=== PATIENT | female | born 1965 | race Two or more races ===

== ENCOUNTER 2016-09-20 17:49 | Emergency (ER) | payer OTHER ==
[~2016-09-20] VITALS: Ht 152.4 cm; Wt 59.0 kg
[~2016-09-20 17:49] MED LIST: CYCLOBENZAPRINE10 MG ORAL; ENALAPRIL MALEA20 MG ORAL; GUAIFENESIN-CO118 M1 ORAL; IBUPROFEN600 MG ORAL; NORCO 5-325 TA1 EAC1 ORAL; NORVASC10 MG ORAL; TAMIFLU75 MG ORAL
[2016-09-20 18:06] VITALS: BP 128/80
[2016-09-20] MEDS ORDERED: Morphine Sulfate 2mg/ml Inj IVP ONE (18:30)
[2016-09-20] MEDS ORDERED: Ketorolac 30mg Inj IV ONE (18:30)
[2016-09-20 19:20] LABS: APPEARANCE,URINE CLEAR; KETONES,URINE NEGATIVE (NEGATIVE); LEUKOCYTE ESTERASE ,URINE 1+ (NEGATIVE); NITRITE,URINE NEGATIVE (NEGATIVE); PH,URINE 6 (4.5-8.0); PROTEIN,URINE NEGATIVE (NEGATIVE); UROBILINOGEN,URINE NORMAL MG/DL (0.0-1.0)
[2016-09-20 19:20] LABS: BASOPHILS % (AUTO) 0.8 % (0.0-2.0); EOSINOPHILS % (AUTO) 1.4 % (0.0-3.0); LYMPHOCYTES % (AUTO) 38.6 % (20.0-45.0); MEAN CORPUSCULAR VOLUME 91 FL (80-99); MEAN PLATELET VOLUME 6.8 FL (6.5-10.1); NEUTROPHILS % (AUTO) 53.2 % (45.0-75.0); PLATELET COUNT 290 K/UL (150-450); RED CELL DISTRIBUTION WIDTH 11.7 % (11.6-14.8); WHITE BLOOD COUNT 7.6 K/UL (4.8-10.8)
[2016-09-20 19:33] LABS: SQUAMOUS EPITHELIAL CELL,UR FEW /LPF (NONE/OCC)
[2016-09-20 19:34] LABS: BACTERIA,URINE FEW /HPF
[2016-09-20 19:37] LABS: ALANINE AMINOTRANSFERASE 17 U/L (3-33); ALBUMIN/GLOBULIN RATIO 1.2 (1.0-2.7); ANION GAP 16 (5-15); ASPARTATE AMINO TRANSFERASE 20 U/L (5-40); CALCIUM 9.5 mg/dL (8.6-10.2); CARBON DIOXIDE 26 mEQ/L (20-30); CHLORIDE 97 mEQ/L (98-107); CREATININE 0.9 mg/dL (0.5-0.9); GLOMERULAR FILTRATION RATE > 60 mL/min (>60); HEMOLYSIS 8; LIPASE 38 U/L (< 60); POTASSIUM 3.9 mEQ/L (3.4-4.9); SODIUM 139 mEQ/L (135-145); TOTAL PROTEIN 7.8 g/dL (6.6-8.7)
[2016-09-20 22:18] VITALS: BP 114/69
[2016-09-20] MEDS ORDERED: TRAMADOL HCL50 MG ORAL (23:01)
[2016-09-20] MEDS ORDERED: IBUPROFEN600 MG ORAL (23:01)
[2016-09-20 23:30] VITALS: BP 125/69
--- NOTE | 2016-09-21 02:03 | Emergency Room Report ---
History of Present Illness General Chief Complaint: Abdominal Pain Source: Patient Present Illness HPI Patient presents with R flank and abdominal pain. Pain began today. 10/ (to RN) 8/10 to me, aching pressure, some radiation from flank to RLQ. Constant. No meds taken. Not positional. No change bowel habits. No dysuria. No fevers , chills. Has had similar many years ago, possibly related to renal stones. Post menopausal. Post partial hysterectomy for fibroids. Recent pap = abnormal. Possible renal stones. Recent L arm/shoulder strain with continued discomfort - not related to abdominal pain. Possibly related to housekeeping activities. No RUBALCAVA, rashes, URI sy, dyspnea, chest pain, leg swelling. Allergies: Coded Allergies: No Known Allergies (Unverified , 10/29/15) Patient History Past Medical History: see triage record Past Surgical History: hysterectomy - partial Social History: Denies: smoking Social History Narrative house keeper Reviewed Nursing Documentation: PMH: Agreed, PSxH: Agreed Nursing Documentation-PMH Hx Hypertension: Yes - hyperlipidemia Hx Seizures: Yes Review of Systems All Other Systems: negative except mentioned in HPI Physical Exam Vital Signs Date Time Temp Pulse Resp B/P Pulse Ox O2 Delivery O2 Flow Rate FiO2 09/20/16 18:01 98.4 80 20 128/80 100 Room Air Sp02 EP Interpretation: reviewed, normal General Appearance: well appearing, no apparent distress, GCS 15 Head: normocephalic Eyes: bilateral eye PERRL, bilateral eye normal inspection ENT: moist mucus membranes Neck: supple Respiratory: lungs clear, normal breath sounds Cardiovascular #1: regular rate, rhythm Cardiovascular #2: 2+ radial (R) Gastrointestinal: normal bowel sounds, soft, no mass, no organomegaly, non- distended, no rebound, tenderness - R anterior flank area and RLQ Genitourinary: no CVA tenderness Musculoskeletal: back normal, gait/station normal, normal range of motion Neurologic: alert, oriented x3 Psychiatric: mood/affect normal Skin: normal inspection, warm/dry Medical Decision Making Diagnostic Impression: Primary Impression: Abdominal pain Qualified Codes: R10.31 - Right lower quadrant pain ER Course Patient presents with flank/RLQ pain. DDx: appendicitis, stone, UTI, diverticulitis, fibroids, ruptured ovarian cyst amongst others. Urgent evaluation due to severity of pain with labs, UA and ultrasound (consider CT if leukocytosis). Treatment with IV hydration and analgesia. Labs with normal WBC and H/H. Lytes and urine normal. U/S no stone or obstruction. Possible uterine issue. Pain essentially resolved. Patient stable for outpatient observation and treatment. Laboratory Tests Test 09/20/16 18:03 09/20/16 19:02 Urine Color Pale yellow Urine Appearance Clear Urine pH 6 (4.5-8.0) Urine Specific [place] 1.020 (1.005-1.035) Urine Protein Negative (NEGATIVE) Urine Glucose (UA) Negative (NEGATIVE) Urine Ketones Negative (NEGATIVE) Urine Occult Blood 3+ (NEGATIVE) H Urine Nitrite Negative (NEGATIVE) Urine Bilirubin Negative (NEGATIVE) Urine Urobilinogen Normal MG/DL (0.0-1.0) Urine Leukocyte Esterase 1+ (NEGATIVE) H Urine RBC 2-4 /HPF (0 - 2) H Urine WBC 2-4 /HPF (0 - 2) Urine Squamous Epithelial Cells Few /LPF (NONE/OCC) Urine Bacteria Few /HPF (NONE) White Blood Count 7.6 K/UL (4.8-10.8) Red Blood Count 4.30 M/UL (4.20-5.40) Hemoglobin 12.9 G/DL (12.0-16.0) Hematocrit 39.2 % (37.0-47.0) Mean Corpuscular Volume 91 FL (80-99) Mean Corpuscular Hemoglobin 30.0 PG (27.0-31.0) Mean Corpuscular Hemoglobin Concent 33.0 G/DL (32.0-36.0) Red Cell Distribution Width 11.7 % (11.6-14.8) Platelet Count 290 K/UL (150-450) Mean Platelet Volume 6.8 FL (6.5-10.1) Neutrophils (%) (Auto) 53.2 % (45.0-75.0) Lymphocytes (%) (Auto) 38.6 % (20.0-45.0) Monocytes (%) (Auto) 6.0 % (1.0-10.0) Eosinophils (%) (Auto) 1.4 % (0.0-3.0) Basophils (%) (Auto) 0.8 % (0.0-2.0) Sodium Level 139 mEQ/L (135-145) Potassium Level 3.9 mEQ/L (3.4-4.9) Chloride Level 97 mEQ/L (98-107) L Carbon Dioxide Level 26 mEQ/L (20-30) Anion Gap 16 (5-15) H Blood Urea Nitrogen 21 mg/dL (7-23) Creatinine 0.9 mg/dL (0.5-0.9) Estimate Glomerular Filtration Rate > 60 mL/min (>60) Glucose Level 100 mg/dL (74-106) Calcium Level 9.5 mg/dL (8.6-10.2) Total Bilirubin 0.4 mg/dL (0.0-1.2) Aspartate Amino Transferase (AST) 20 U/L (5-40) Alanine Aminotransferase (ALT) 17 U/L (3-33) Alkaline Phosphatase 74 U/L (35-104) Total Protein 7.8 g/dL (6.6-8.7) Albumin 4.4 g/dL (3.5-5.2) Globulin 3.4 g/dL Albumin/Globulin Ratio 1.2 (1.0-2.7) Lipase 38 U/L (< 60) Other X-Ray Diagnostic Results Other X-Ray Diagnostic Results : X-Ray Ordered: abdomen EP Interpretation: Yes Findings: other - NSBGP, no obstruction, no calcifications Number of Views: 1 CT/MRI/US Diagnostic Results CT/MRI/US Diagnostic Results : Imaging Test Ordered: renal ultrasound Impression Findings: The size, contour, and echogenicity of both kidneys are within normal limits. The right kidney is 10 CM. Left kidney is about 11.5 CM in length. There is no hydronephrosis. The IVC and urinary bladder are unremarkable. Impression: Negative Last Vital Signs Date Time Temp Pulse Resp B/P Pulse Ox O2 Delivery O2 Flow Rate FiO2 09/20/16 23:30 97.5 60 20 114/69 99 Room Air Status: improved Disposition: HOME, SELF-CARE Condition: Improved Scripts Tramadol Hcl* (ULTRAM*) 50 Mg Tablet 50 MG ORAL Q6H Y for For Pain, #10 TAB 0 Refills Prov: Stuart Trammell M.D. 09/20/16 Ibuprofen* (MOTRIN*) 600 Mg Tablet 600 MG ORAL Q6H Y for For Pain, #20 TAB Prov: Stuart Trammell M.D. 09/20/16 Patient Instructions: Abdominal Pain, Adult Additional Instructions: Regrese a alejandro croonado doctor. J Carlos finley. Stuart Trammell M.D. Sep 21, 2016 02:03
--- NOTE | 2016-09-21 11:35 | Diagnostic Imaging Report ---
Indication: Abdominal pain Comparison: None Single view of the abdomen obtained Findings: Bowel gas pattern is nonspecific. No mass, ectopic calcifications, or abnormal gas collections are identified. The bones are unremarkable. Impression: No acute findings
--- NOTE | 2016-09-21 13:10 | Diagnostic Imaging Report ---
Indication:Elevated Bun and Creatinine. Technique: Grayscale and duplex Doppler imaging of the kidneys performed. Comparison: None Findings: The size, contour, and echogenicity of both kidneys are within normal limits. The right kidney is 10 CM. Left kidney is about 11.5 CM in length. There is no hydronephrosis. The IVC and urinary bladder are unremarkable. Impression: Negative
== END 2016-09-20 23:30 | disposition home or self-care (01) ==
LOC: EMR 20:35
DX: R10.31 Right lower quadrant pain (principal); E78.5 Hyperlipidemia, unspecified; R56.9 Unspecified convulsions; Z90.710 Acquired absence of both cervix and uterus
CPT/HCPCS: 36415; 74000; 76775; 80053; 81003; 83690; 85025; 96361; 96374; 96375; 99284; J1885; J2270; J2405

== ENCOUNTER 2017-03-13 18:13 | Emergency (ER) | payer OTHER ==
[~2017-03-13] VITALS: Ht 152.4 cm; Wt 62.6 kg
[~2017-03-13 18:13] MED LIST changes: +TRAMADOL HCL50 MG ORAL
[2017-03-13 18:49] VITALS: BP 137/88
--- NOTE | 2017-03-13 18:55 | Emergency Room Report ---
History of Present Illness General Chief Complaint: Upper Respiratory Illness Source: Patient Present Illness HPI 51 YO Female presents to the ED c/o dry cough x 3 days. Denies Fevers/ Chills. Denies sore throat, and nasal congestion, sputum production, rashes, abdominal pain, ill-contacts or recent travel. Denies hx of smoking, asthma or COPD. Denies CP, Palpitations, LOC, AMS, dizziness, Changes in Vision, Sensation, paresthesias, or a sudden severe headache. Allergies: Coded Allergies: No Known Allergies (Unverified , 10/29/15) Patient History Past Medical History: see triage record Past Surgical History: none Pertinent Family History: none Now: No Reviewed Nursing Documentation: PMH: Agreed, PSxH: Agreed Nursing Documentation-PMH Hx Hypertension: Yes Hx Seizures: Yes Review of Systems All Other Systems: negative except mentioned in HPI Physical Exam Vital Signs Date Time Temp Pulse Resp B/P Pulse Ox O2 Delivery O2 Flow Rate FiO2 03/13/17 18:37 97.9 73 16 137/88 97 Room Air Sp02 EP Interpretation: reviewed, normal General Appearance: no apparent distress, alert, GCS 15, non-toxic Head: normocephalic, atraumatic Eyes: bilateral eye PERRL, bilateral eye normal inspection ENT: hearing grossly normal, normal pharynx, no angioedema, normal voice Neck: full range of motion, supple/symm/no masses Respiratory: lungs clear, normal breath sounds, speaking full sentences Cardiovascular #1: regular rate, rhythm, no edema Musculoskeletal: back normal, gait/station normal, normal range of motion, non- tender Neurologic: alert, oriented x3, responsive, motor strength/tone normal, sensory intact, speech normal Psychiatric: judgement/insight normal, memory normal, mood/affect normal, no suicidal/homicidal ideation Skin: normal color, no rash, warm/dry, well hydrated Lymphatic: no adenopathy Medical Decision Making PA Attestation Dr. ramachandran is my supervising Physician whom patient management has been discussed with. Diagnostic Impression: Primary Impression: Bronchitis ER Course Pt. presents to the ED c/o dry cough x 3 days. Denies Fevers/ Chills. Ddx considered but are not limited to URI, pneumonia, PE, strep pharyngitis, meningitis. Vital signs: Pt.is afebrile VS are WNL H&PE are most consistent with bronchitis ORDERS: none required at this time, the diagnosis is clinical ED INTERVENTIONS: None required at this time. DISCHARGE: At this time pt. is stable for d/c to home. Will provide printed patient care instructions, and any necessary prescriptions. Care plan and follow up instructions have been discussed with the patient prior to discharge. Last Vital Signs Date Time Temp Pulse Resp B/P Pulse Ox O2 Delivery O2 Flow Rate FiO2 03/13/17 18:49 73 16 Room Air 03/13/17 18:49 97.9 137/88 97 Disposition: HOME, SELF-CARE Condition: Stable Scripts Albuterol Sulfate* (ALBUTEROL SULFATE MDI*) 8.5 Gm Hfa.aer.ad 2 PUFF INH Q3H, #1 INH 0 Refills Prov: Ema Diaz 03/13/17 Benzonatate* (TESSALON PERLE*) 100 Mg Capsule 100 MG ORAL THREE TIMES A DAY for 5 Days, #15 PERLE Prov: Ema Diaz 03/13/17 Codeine/Promethazine Hcl* (PROMETHAZINE-CODEINE SYRUP*) 118 Ml Syrup 5 ML ORAL Q6H Y for For Cough, #118 ML 0 Refills Prov: Ema Diaz 03/13/17 Patient Instructions: Acute Bronchitis, [id number] Additional Instructions: Take medications as directed. Follow up with a Primary Care Provider in 3-5 days, even if your symptoms have resolved. --Please review list of primary care clinics, if you do not already have a primary care provider Return sooner to ED if new symptoms occur, or current symptoms become worse. Do not drink alcohol, drive, or operate heavy machinery while taking cough syrup as this may cause drowsiness. - Please note that this Emergency Department Report was dictated using [employer] information systems analyst technology software, occasionally this can lead to erroneous entry secondary to interpretation by the dictation equipment. Ema Diaz Mar 13, 2017 18:55
[2017-03-13] MEDS ORDERED: ALBUTEROL SULF8.5 GM INH (18:56)
[2017-03-13] MEDS ORDERED: PROMETHAZINE-C118 M1 ORAL (18:56)
[2017-03-13] MEDS ORDERED: TESSALON PERLE100 MG ORAL (18:56)
[2017-03-13 19:05] VITALS: BP 137/88
== END 2017-03-13 19:22 | disposition home or self-care (01) ==
LOC: EMR 18:58
DX: J40 Bronchitis, not specified as acute or chronic (principal); I10 Essential (primary) hypertension
CPT/HCPCS: 99284

== ENCOUNTER 2017-03-20 19:24 | Emergency (ER) | payer OTHER ==
[~2017-03-20] VITALS: Ht 152.4 cm; Wt 62.6 kg
[~2017-03-20 19:24] MED LIST changes: +ALBUTEROL SULF8.5 GM INH; +PROMETHAZINE-C118 M1 ORAL; +TESSALON PERLE100 MG ORAL
[2017-03-20] MEDS ORDERED: Phenazopyridine 200mg tab ORAL ONE (20:30)
[2017-03-20] MEDS ORDERED: Cephalexin 500mg cap ORAL ONE (20:30)
[2017-03-20 20:57] LABS: APPEARANCE,URINE SLIGHTLY CLOUDY; KETONES,URINE NEGATIVE (NEGATIVE); LEUKOCYTE ESTERASE ,URINE 3+ (NEGATIVE); NITRITE,URINE NEGATIVE (NEGATIVE); PH,URINE 5 (4.5-8.0); PROTEIN,URINE 1+ (NEGATIVE); UROBILINOGEN,URINE NORMAL MG/DL (0.0-1.0)
[2017-03-20] MEDS ORDERED: KEFLEX500 MG ORAL (21:12)
[2017-03-20] MEDS ORDERED: PHENAZOPYRIDIN200 MG ORAL (21:12)
[2017-03-20 21:19] VITALS: BP 133/88
[2017-03-20 21:26] LABS: BACTERIA,URINE FEW /HPF; WBC,URINE TNTC /HPF (0 - 2)
[2017-03-20 21:27] LABS: CALCIUM OXALATE CRYSTALS,UR FEW /LPF; SQUAMOUS EPITHELIAL CELL,UR MODERATE /LPF (NONE/OCC)
--- NOTE | 2017-03-21 00:41 | Emergency Room Report ---
History of Present Illness General Chief Complaint: Female Urogenital Problems Source: Patient Present Illness [facility] This 51-year-old female presented after increased urinary frequency and urgency. She reported having some small amount of blood in her urine. She denied any fever. She denied a flank pain. Had not been vomiting. She had not been having any severe pain. She denied prior history of bladder disease. She recently been ill with upper respiratory infection Allergies: Coded Allergies: No Known Allergies (Unverified , 10/29/15) Patient History Past Medical History: see triage record Last Menstrual Period: not anymore Now: No : 3 Para: 1 Reviewed Nursing Documentation: PMH: Agreed, PSxH: Agreed Nursing Documentation-PMH Hx Hypertension: Yes Hx Seizures: Yes Review of Systems All Other Systems: negative except mentioned in HPI Physical Exam Vital Signs Date Time Temp Pulse Resp B/P Pulse Ox O2 Delivery O2 Flow Rate FiO2 03/20/17 19:37 98.4 71 18 132/84 95 Room Air General Appearance: well appearing, no apparent distress, alert, GCS 15 Head: normocephalic, atraumatic ENT: hearing grossly normal, normal voice Neck: full range of motion, supple Respiratory: no respiratory distress, speaking full sentences Gastrointestinal: normal inspection, normal bowel sounds, non tender, soft Musculoskeletal: no calf tenderness Neurologic: normal gait Psychiatric: mood/affect normal Skin: no rash Medical Decision Making Diagnostic Impression: Primary Impression: UTI (urinary tract infection) ER Course Patient presented for dysuria. Differential diagnosis included was not limited to appendicitis, urinary tract infection, pelvic inflammatory disease, urethritis, herpes among others. A urinalysis showed evidence of infection. Patient was given prescription for oral antibiotics. She is advised followup with primary care physician for recheck of her urine.The patient is advised to follow up with primary care doctor in 1-2 days. Patient is advised to return if any worsening condition or if any changes in status that are concerning. Last Vital Signs Date Time Temp Pulse Resp B/P Pulse Ox O2 Delivery O2 Flow Rate FiO2 03/20/17 21:19 98.4 88 18 133/88 95 Room Air Status: improved Disposition: HOME, SELF-CARE Condition: Stable Scripts Cephalexin* (KEFLEX*) 500 Mg Capsule 500 MG ORAL Q6H, #28 CAP 0 Refills Prov: Andi Yanez 03/20/17 Phenazopyridine Hcl* (PYRIDIUM*) 200 Mg Tablet 200 MG ORAL THREE TIMES A DAY, #14 TAB 0 Refills Prov: Andi Yanez 03/20/17 Patient Instructions: Urinary Tract Infection Andi Yanez Mar 21, 2017 00:41
== END 2017-03-20 21:21 | disposition home or self-care (01) ==
LOC: EMR 19:48
DX: N39.0 Urinary tract infection, site not specified (principal); I10 Essential (primary) hypertension
CPT/HCPCS: 81003; 81025; 87086; 99284

== ENCOUNTER 2017-09-29 10:03 | Emergency (ER) | payer OTHER ==
[~2017-09-29] VITALS: Ht 152.4 cm; Wt 62.1 kg
[~2017-09-29 10:03] MED LIST changes: +KEFLEX500 MG ORAL; +NITROFURANTOIN100 M2 ORAL; +PHENAZOPYRIDIN200 MG ORAL
[2017-09-29] MEDS ORDERED: ATORVASTATIN CA40 MG ORAL (10:11)
[2017-09-29] MEDS ORDERED: Ketorolac 30mg Inj IV ONE (10:45)
--- NOTE | 2017-09-29 10:48 | Emergency Room Report ---
History of Present Illness General Chief Complaint: Abdominal Pain Source: Patient Present Illness HPI Patient present with complaints of epigastric and mid abdominal pain Started yesterday she feels that anything she eats she vomits denies any diarrhea pain is 4/10 Denies any fevers or chills denies any chest pain or shortness of breath Patient has had previous fibroid surgery Denies any blood in the stool Denies any flank pain she also did have some myalgia as well Allergies: Coded Allergies: No Known Allergies (Unverified , 10/29/15) Patient History Past Medical History: see triage record Pertinent Family History: none Last Menstrual Period: 4yrs ago Reviewed Nursing Documentation: PMH: Agreed, PSxH: Agreed Nursing Documentation-PMH Past Medical History: No History, Except For Hx Hypertension: Yes Hx Seizures: Yes Review of Systems All Other Systems: negative except mentioned in HPI Physical Exam Vital Signs Date Time Temp Pulse Resp B/P (MAP) Pulse Ox O2 Delivery O2 Flow Rate FiO2 09/29/17 10:07 98.4 102 18 108/68 97 Room Air Sp02 EP Interpretation: reviewed, normal General Appearance: well appearing, no apparent distress Head: normocephalic, atraumatic Eyes: bilateral eye PERRL, bilateral eye EOMI ENT: hearing grossly normal, normal pharynx, TMs + canals normal, uvula midline Neck: full range of motion, supple, no meningismus, no bony tend Respiratory: lungs clear, normal breath sounds, no rhonchi, no respiratory distress, no retraction, no accessory muscle use Cardiovascular #1: normal peripheral pulses, regular rate, rhythm, no edema, no gallop, no JVD, no murmur Gastrointestinal: normal bowel sounds, non tender - Of her subjectively points to the epigastric mid abdominal area for the discomfort, soft, no mass, no organomegaly, non-distended, no guarding, no hernia, no pulsatile mass, no rebound Genitourinary: no CVA tenderness Musculoskeletal: normal inspection Neurologic: oriented x3, responsive, deck mechanic III-XII nml as tested, motor strength/ tone normal, sensory intact Psychiatric: mood/affect normal Skin: normal color, no rash, warm/dry, palpation normal Lymphatic: normal inspection, no adenopathy Medical Decision Making Diagnostic Impression: Primary Impression: Abdominal pain ER Course Multiple differentials considered Patient's complex requiring blood work And acute medication intervention Patient's labs are at this time levels patient's symptoms have improved significantly with intervention My suspicion for appendicitis is low given the lack of any lower abdominal discomfort Patient appears to have likely viral pathology given the vomiting At this time we'll have the initial conservative outpatient trial Labs Test 09/29/17 10:15 09/29/17 10:40 Urine Color Yellow Urine Appearance Clear Urine pH 5 (4.5-8.0) Urine Specific [place] 1.020 (1.005-1.035) Urine Protein 1+ (NEGATIVE) Urine Glucose (UA) Negative (NEGATIVE) Urine Ketones 1+ (NEGATIVE) Urine Occult Blood 3+ (NEGATIVE) Urine Nitrite Negative (NEGATIVE) Urine Bilirubin Negative (NEGATIVE) Urine Urobilinogen 1 MG/DL (0.0-1.0) Urine Leukocyte Esterase 1+ (NEGATIVE) Urine RBC 5-10 /HPF (0 - 2) Urine WBC 2-4 /HPF (0 - 2) Urine Squamous Epithelial Cells Few /LPF (NONE/OCC) Urine Bacteria Few /HPF (NONE) Urine Mucus Moderate /LPF (NONE/OCC) White Blood Count 7.3 K/UL (4.8-10.8) Red Blood Count 4.43 M/UL (4.20-5.40) Hemoglobin 13.0 G/DL (12.0-16.0) Hematocrit 40.0 % (37.0-47.0) Mean Corpuscular Volume 90 FL (80-99) Mean Corpuscular Hemoglobin 29.3 PG (27.0-31.0) Mean Corpuscular Hemoglobin Concent 32.5 G/DL (32.0-36.0) Red Cell Distribution Width 11.5 % (11.6-14.8) Platelet Count 249 K/UL (150-450) Mean Platelet Volume 6.3 FL (6.5-10.1) Neutrophils (%) (Auto) % (45.0-75.0) Lymphocytes (%) (Auto) % (20.0-45.0) Monocytes (%) (Auto) % (1.0-10.0) Eosinophils (%) (Auto) % (0.0-3.0) Basophils (%) (Auto) % (0.0-2.0) Differential Total Cells Counted 100 Neutrophils % (Manual) 82 % (45-75) Lymphocytes % (Manual) 10 % (20-45) Monocytes % (Manual) 4 % (1-10) Eosinophils % (Manual) 0 % (0-3) Basophils % (Manual) 0 % (0-2) Band Neutrophils 4 % (0-8) Platelet Estimate Adequate Platelet Morphology Normal Red Blood Cell Morphology Normal Sodium Level 138 MMOL/L (136-145) Potassium Level 3.7 MMOL/L (3.5-5.1) Chloride Level 102 MMOL/L (98-107) Carbon Dioxide Level 28 MMOL/L (21-32) Anion Gap 8 mmol/L (5-15) Blood Urea Nitrogen 24 mg/dL (7-18) Creatinine 0.9 MG/DL (0.55-1.30) Estimat Glomerular Filtration Rate > 60 mL/min (>60) Glucose Level 119 MG/DL (74-106) Calcium Level 8.6 MG/DL (8.5-10.1) Total Bilirubin 0.7 MG/DL (0.2-1.0) Aspartate Amino Transf (AST/SGOT) 25 U/L (15-37) Alanine Aminotransferase (ALT/SGPT) 27 U/L (12-78) Alkaline Phosphatase 75 U/L (46-116) Total Protein 7.6 G/DL (6.4-8.2) Albumin 3.6 G/DL (3.4-5.0) Globulin 4.0 g/dL Albumin/Globulin Ratio 0.9 (1.0-2.7) Lipase 102 U/L (73-393) Last Vital Signs Date Time Temp Pulse Resp B/P (MAP) Pulse Ox O2 Delivery O2 Flow Rate FiO2 09/29/17 10:07 98.4 102 18 108/68 97 Room Air Status: improved Disposition: HOME, SELF-CARE Condition: Improved Scripts Ondansetron Odt* (ZOFRAN ODT*) 4 Mg Tab.rapdis 4 MG ORAL Q6H Y for Nausea & Vomiting, #10 TAB 0 Refills Prov: TAN LORENZO D.O. 09/29/17 Additional Instructions: Patient is provided with the discharge instructions notified to follow up with primary doctor in the next 2-3 days otherwise return to the er with any worsening symptoms. Please note that this report is being documented using [employer] technology. This can lead to erroneous entry secondary to incorrect interpretation by the dictating instrument. TAN LORENZO D.O. Sep 29, 2017 10:48
[2017-09-29 10:58] LABS: APPEARANCE,URINE CLEAR; BILIRUBIN, URINE NEGATIVE (NEGATIVE); GLUCOSE, URINE (UA) NEGATIVE (NEGATIVE); KETONES,URINE 1+ (NEGATIVE); LEUKOCYTE ESTERASE ,URINE 1+ (NEGATIVE); NITRITE,URINE NEGATIVE (NEGATIVE); PH,URINE 5 (4.5-8.0); PROTEIN,URINE 1+ (NEGATIVE); UROBILINOGEN,URINE 1 MG/DL (0.0-1.0)
[2017-09-29 11:02] LABS: COLOR,URINE YELLOW
[2017-09-29 11:03] LABS: MEAN CORPUSCULAR VOLUME 90 FL (80-99); PLATELET COUNT 249 K/UL (150-450); RED BLOOD COUNT 4.43 M/UL (4.20-5.40); RED CELL DISTRIBUTION WIDTH 11.5 % (11.6-14.8); WHITE BLOOD COUNT 7.3 K/UL (4.8-10.8)
[2017-09-29 11:26] LABS: ANION GAP 8 mmol/L (5-15); BLOOD UREA NITROGEN 24 mg/dL (7-18); CALCIUM 8.6 MG/DL (8.5-10.1); CARBON DIOXIDE 28 MMOL/L (21-32); CHLORIDE 102 MMOL/L (98-107); CREATININE 0.9 MG/DL (0.55-1.30); POTASSIUM 3.7 MMOL/L (3.5-5.1); SODIUM 138 MMOL/L (136-145)
[2017-09-29 11:32] LABS: ALANINE AMINOTRANSFERASE 27 U/L (12-78); ALBUMIN 3.6 G/DL (3.4-5.0); ALBUMIN/GLOBULIN RATIO 0.9 (1.0-2.7); ALKALINE PHOSPHATASE 75 U/L (46-116); ASPARTATE AMINO TRANSFERASE 25 U/L (15-37); BILIRUBIN,TOTAL 0.7 MG/DL (0.2-1.0)
[2017-09-29] MEDS ORDERED: ZOFRAN ODT4 MG ORAL (12:31)
[2017-09-29 13:01] VITALS: BP 97/64
== END 2017-09-29 13:05 | disposition home or self-care (01) ==
LOC: EMR 10:30
DX: R10.9 Unspecified abdominal pain (principal); I10 Essential (primary) hypertension
CPT/HCPCS: 36415; 80053; 81003; 83690; 85007; 85025; 96374; 96375; 99284; J1885; J2405

== ENCOUNTER 2018-06-22 19:00 | Emergency (ER) | payer OTHER ==
[~2018-06-22] VITALS: Ht 152.4 cm; Wt 62.6 kg
[~2018-06-22 19:00] MED LIST changes: +ATORVASTATIN CA40 MG ORAL; +ZOFRAN ODT4 MG ORAL
[2018-06-22 19:15] VITALS: BP 154/97
--- NOTE | 2018-06-22 19:40 | Emergency Room Report ---
History of Present Illness General Chief Complaint: Constipation Source: Patient Present Illness HPI 52-year-old female presents to the emergency department complaining of 8 out of 10 in severity generalized abdominal pain with reports constipation x 2 days. Patient states that she was able to have a bowel movement today which consisted of small amount of hard stool. Patient reports nausea she denies vomiting. She reports feeling migratory gas pain intermittently. She states she is able to pass gas. Reports she has had constipation in the past which normally resolves with the OTC medication that she took. Patient states her symptoms are progressive she denies fevers or blood in the stool. Patient denies diarrhea, urinary frequency or urgency. She states that she took over- the-counter laxative that was in liquid form earlier today it did not leave her symptoms she did not have a bowel movement afterwards she states that her nausea felt worse. She reports when the pain comes she hears noises and feels movement with burning across her stomach as if she is going to have diarrhea only she is unable to have normal bm. pt. denies ill contacts with similar symptoms. denies dysuria, frequency or urgency. Denies abdominal tenderness. reports symptoms come and completely resolve episodically. Allergies: Coded Allergies: No Known Allergies (Unverified , 10/29/15) Patient History Past Medical History: see triage record Past Surgical History: none Pertinent Family History: none Last Menstrual Period: 4 years ago Now: No Reviewed Nursing Documentation: PMH: Agreed; PSxH: Agreed Nursing Documentation-PMH Past Medical History: No History, Except For Hx Cardiac Problems: No - high cholesterol Hx Hypertension: Yes Hx Pacemaker: No Hx Asthma: No Hx COPD: No Hx Diabetes: No Hx Cancer: No Hx Gastrointestinal Problems: No - Uterine fibroids Hx Dialysis: No History Of Psychiatric Problem: No Hx Neurological Problems: No Hx Cerebrovascular Accident: No Hx Seizures: No Review of Systems All Other Systems: negative except mentioned in HPI Physical Exam Vital Signs Date Time Temp Pulse Resp B/P (MAP) Pulse Ox O2 Delivery O2 Flow Rate FiO2 06/22/18 19:12 98.4 88 16 154/97 97 Room Air 98.4 Medical Decision Making PA Attestation Dr. ramachandran is my supervising Physician whom patient management has been discussed with. Diagnostic Impression: Primary Impression: Abdominal pain Qualified Codes: R10.9 - Unspecified abdominal pain Additional Impression: Constipation Qualified Codes: K59.00 - Constipation, unspecified ER Course 52-year-old female presents to the emergency department complaining of 8 out of 10 in severity generalized abdominal pain with reports constipation x 2 days. Patient states that she was able to have a bowel movement today which consisted of small amount of hard stool. Patient reports nausea she denies vomiting. She reports feeling migratory gas pain intermittently. She states she is able to pass gas. Reports she has had constipation in the past which normally resolves with the OTC medication that she took. Patient states her symptoms are progressive she denies fevers or blood in the stool. Patient denies diarrhea, urinary frequency or urgency. She states that she took over- the-counter laxative that was in liquid form earlier today it did not leave her symptoms she did not have a bowel movement afterwards she states that her nausea felt worse. She reports when the pain comes she hears noises and feels movement with burning across her stomach as if she is going to have diarrhea only she is unable to have normal bm. pt. denies ill contacts with similar symptoms. denies dysuria, frequency or urgency. Denies abdominal tenderness. reports symptoms come and completely resolve episodically. Ddx considered but are not limited to constipation , appendicitis, SBO, ectopic , PID, tubo-ovarian abscess, partial bowel obstruction. Vital signs: are WNL, pt. is afebrile H&PE are most consistent with constipation. bowl sounds are normo active. ORDERS: Abdominal KUB- non specific bowel gas pattern. no evidence of obstruction. ED INTERVENTIONS: - D/w pt. that I can give her medication here but am unable to determine what time it will work and am cautious if she is driving home and not near a bathroom. pt demonstrates and verbalizes understanding and treatment plan will consist of rx'd for medication for gas relief and laxative. pt. is to drink plenty of water. She is given very strict ED return precautions if she experiences worsening or new symptoms. pt. verbalizes her understanding. D/w pt. this will also be included on her d/c paper work along with some information about her symptoms. d/w pt. the need for close outpatient follow up with her PCP. DISCHARGE: At this time pt. is stable for d/c to home. Will provide printed patient care instructions, and any necessary prescriptions. Care plan and follow up instructions have been discussed with the patient prior to discharge. Last Vital Signs Date Time Temp Pulse Resp B/P (MAP) Pulse Ox O2 Delivery O2 Flow Rate FiO2 06/22/18 19:12 98.4 88 16 154/97 97 Room Air 98.4 Disposition: HOME, SELF-CARE Condition: Stable Scripts Simethicone (SIMETHICONE) 180 Mg Capsule 180 MG PO BID, #20 CAP Prov: Ema Diaz 06/22/18 Lactulose (LACTULOSE*) 20 Gm/30 Ml Solution 20 ML ORAL BID, #100 ML 0 Refills Prov: Ema Diaz 06/22/18 Patient Instructions: Abdominal Pain, Adult, [id number], Constipation, Adult Additional Instructions: Take medications as directed. Follow up with a Primary Care Provider in 3-5 days, even if your symptoms have resolved. --Please review list of primary care clinics, if you do not already have a primary care provider Return sooner to ED if new symptoms occur, or current symptoms become worse. - Please note that this Emergency Department Report was dictated using [employer] specialist technology software, occasionally this can lead to erroneous entry secondary to interpretation by the dictation equipment. Ema Diaz Jun 22, 2018 19:40
[2018-06-22] MEDS ORDERED: Isovue-300 100ml vial INJ PRN (20:00)
[2018-06-22] MEDS ORDERED: SIMETHICONE180 MG PO (20:07)
[2018-06-22] MEDS ORDERED: LACTULOSE20 GM/301 ORAL (20:07)
[2018-06-22 20:21] VITALS: BP 151/92
== END 2018-06-22 20:50 | disposition home or self-care (01) ==
LOC: EMR 20:41
DX: K59.00 Constipation, unspecified (principal); I10 Essential (primary) hypertension; R10.9 Unspecified abdominal pain
CPT/HCPCS: 74018; 99283

== ENCOUNTER 2018-12-06 17:43 | Emergency (ER) | payer OTHER ==
[~2018-12-06] VITALS: Ht 152.4 cm; Wt 62.6 kg
[~2018-12-06 17:43] MED LIST changes: +LACTULOSE20 GM/301 ORAL; +SIMETHICONE180 MG PO
[2018-12-06 17:58] VITALS: BP 163/98
[2018-12-06 18:10] VITALS: BP 163/98
--- NOTE | 2018-12-06 18:10 | NUR ---
ED Nurse Note: pt walked in to ED due to sore throat and headache for last 3 days. no fever or chills reported. AAO x4. respirations even and non-labored noted. will wait for the further order.
[2018-12-06] MEDS ORDERED: Lidocaine 2% Visc 15ml soln ORAL ONE (18:30)
[2018-12-06] MEDS ORDERED: Acetaminophen 500mg (ES) tab ORAL ONE (18:30)
--- NOTE | 2018-12-06 18:30 | Emergency Room Report ---
History of Present Illness General Chief Complaint: Sore Throat Source: Patient Present Illness HPI 53-year-old female patient presents the ER with multiple complaints. Patient reports that she has had a sore throat for the past week. Also complaining of headache and sinus congestion. Reports worst headache of life. Reports headache "all over". Also reports feeling nauseous after eating food. Denies smoking cigarettes. Denies drinking alcohol. Denies history of acid reflux or GERD. Reports that she was seen by her primary care doctor yesterday who told her that she had the flu. Reports that she was given Advil has been taking that with mild relief of symptoms. Denies vomiting or vision changes. Denies other aggravating or relieving factors. Denies drug use. Denies abdominal pain. Denies fever. Denies vomiting or diarrhea. Allergies: Coded Allergies: No Known Allergies (Unverified , 10/29/15) Patient History Past Medical History: see triage record Reviewed Nursing Documentation: PMH: Agreed; PSxH: Agreed Nursing Documentation-PMH Past Medical History: No History, Except For Hx Cardiac Problems: No - high cholesterol Hx Hypertension: Yes Hx Pacemaker: No Hx Asthma: No Hx COPD: No Hx Diabetes: No Hx Cancer: No Hx Gastrointestinal Problems: No - Uterine fibroids Hx Dialysis: No Hx Neurological Problems: No Hx Cerebrovascular Accident: No Hx Seizures: No Review of Systems All Other Systems: negative except mentioned in HPI Physical Exam Vital Signs Date Time Temp Pulse Resp B/P (MAP) Pulse Ox O2 Delivery O2 Flow Rate FiO2 12/06/18 17:58 98.4 90 16 163/98 97 Room Air Sp02 EP Interpretation: reviewed, normal General Appearance: well appearing, no apparent distress, alert, GCS 15, non- toxic Head: normocephalic, atraumatic, other - Frontal maxillary sinuses tender to palpation bilaterally, no overlying erythema or edema Eyes: bilateral eye normal inspection, bilateral eye PERRL ENT: hearing grossly normal, normal pharynx, no angioedema, normal voice, TMs + canals normal, uvula midline, moist mucus membranes, nasal congestion, tonsillar swelling, pharyngeal erythema Neck: full range of motion, no meningismus, no bony tend Respiratory: lungs clear, normal breath sounds, no rhonchi, no respiratory distress, no accessory muscle use, no wheezing, speaking full sentences Cardiovascular #1: regular rate, rhythm, no edema Gastrointestinal: non tender, soft, no mass, non-distended, no guarding, no rebound, other - negative Jiang, negative Rovsing Musculoskeletal: back normal, digits/nails normal, gait/station normal, normal range of motion, non-tender Neurologic: alert, oriented x3, responsive, telephone sales agent III-XII nml as tested, motor strength/tone normal, sensory intact, cerebellar normal, normal gait, speech normal Skin: no rash Lymphatic: adenopathy - Cervical Medical Decision Making PA Attestation Dr. Ivy is my supervising Physician whom patient management has been discussed with. Diagnostic Impression: Primary Impression: Headache Additional Impressions: Tonsillitis Acid reflux ER Course Pt. presents to the ED c/o sore throat, nausea, headache, sinus congestion. Ddx considered but are not limited to SAH, migraine, cluster headache, tension headache, influenza, tonsillitis, peritonsillar abscess, sinusitis, meningitis , acid reflex, GERD, gastritis, meningitis, cholecystitis. No meningismus, patient afebrile, low suspicion for meningitis. No abdominal tenderness palpation, negative Jiang, no jaundice, no vomiting, low suspicion for cholecystitis. Due to patient age and worse headache of life, will order CT head to rule out SAH. Vital signs: are WNL, pt. is afebrile. Blood pressure mildly elevated, will continue to monitor, does not require acute intervention in the ER, denies chest pain or shortness of breath. ER COURSE: Provide with viscous lidocaine, Tylenol, Zofran while in the ER. Sore throat symptoms present for 1 week, failed outpatient conservative treatment, pharyngeal erythema and edema noted, lymphadenopathy, denies cough, will treat for tonsillitis with antibiotics. Advised patient on salt water gargles. Continue take Tylenol for pain symptoms. No trismus, uvula midline, no drooling, low suspicion for peritonsillar abscess. No focal neuro deficits, cranial nerves intact as tested. CT facial shows bones Negative CT head shows a 4 mm linear high density focus in left parietal occipital region consideration for hemorrhage or artifact. No focal neuro deficits, cranial nerves intact as tested., Low suspicion for hemorrhage, likely artifact. Consult with Dr. Ivy, advised patient follow-up in [address] head. Patient signs and symptoms consistent with acid reflux. No abdominal tenderness palpation, does not require abdominal imaging or labs at this time. Will discharge patient home with Pepcid. Avoid fatty foods, greasy foods, alcohol. Drink plenty of fluids. Take Tylenol for pain symptoms. Follow-up GI specialist. ER precautions given. DISCHARGE: At this time pt is stable for d/c to home. Patient is resting comfortably, in no acute distress, nontoxic appearing, talking without difficulty. Patient to take medications as instructed Will provide with patient care instructions and any necessary prescriptions. Care plan and follow-up instructions provided. Patient instructed to follow-up with primary care provider in 3 - 5 days. Patient questions asked and answered. Patient reports understanding and agreement to treatment plan. ER precautions given. Patient instructed to return to ER immediately for any new or worsening of symptoms including but not limited to increasing SOB, persistent fever, chest pain, intractable vomiting. - Please note that this Emergency Department Report was dictated using [employer] r[employer] technology software, occasionally this can lead to erroneous entry secondary to interpretation by the dictation equipment. CT/MRI/US Diagnostic Results CT/MRI/US Diagnostic Results #1: Imaging Test Ordered: CT head Impression 4 mm linear high density focus left parietal occipital region axial 12 and coronal 29. Consideration would include small focus of hemorrhage or artifact. CT/MRI/US Diagnostic Results #2: Imaging Test Ordered: CT facial bones Impression No fracture. Globes appear intact without retrobulbar stranding. The paranasal sinuses and mastoids are clear. TMJs appear normally located. Last Vital Signs Date Time Temp Pulse Resp B/P (MAP) Pulse Ox O2 Delivery O2 Flow Rate FiO2 12/06/18 18:10 98.4 90 16 163/98 97 Room Air Status: improved Disposition: HOME, SELF-CARE Condition: Stable Scripts Famotidine (PEPCID AC) 20 Mg Tablet 20 MG PO DAILY, #30 TAB Prov: Jarocho Hernandez.A. 12/06/18 Acetaminophen* (TYLENOL EXTRA STRENGTH*) 500 Mg Tablet 500 MG ORAL Q8H PRN for Prn Headache/Temp > 101, #30 TAB 0 Refills Prov: Jarocho Hernandez.A. 12/06/18 Amoxicillin* (AMOXIL*) 500 Mg Capsule 500 MG ORAL EVERY 8 HOURS for 7 Days, #21 CAP Prov: Jarocho Hernandez.A. 12/06/18 Referrals: [facility],REFERRING (PCP) Patient Instructions: Food Choices for Gastroesophageal Reflux Disease, Adult, Gastroesophageal Reflux Disease, Adult, [id number], General Headache Without Cause, [id number], Tonsillitis Additional Instructions: Followup with primary care provider in 3 -5 days. Discussed referral to neurology. Return to the ER in [address] head to rule out underlying bleed. Salt water gargles Take Tylenol for pain and fever symptoms Drink plenty of water. Take medications as directed. Patient questions asked and answered. ER precautions given, patient instructed to return to ER immediately for any new or worsening of symptoms including but not limited to intractable vomiting, difficulty breathing, inability to eat. Jarocho Hernandez Dec 06, 2018 18:30
--- NOTE | 2018-12-06 19:15 | NUR ---
HAND-OFF: Report given to MEAGAN Hong.
--- NOTE | 2018-12-06 20:00 | Diagnostic Imaging Report ---
History: PAIN Exam: CT HEAD Without Contrast Technique more: CTDI is 70.38 mGy and DLP is 1280.86 mGy-cm. Technique more: One or more of the following dose reduction techniques were used: automated exposure control, adjustment of the mA and/or kV according to patient size, use of iterative reconstruction technique. Comparison: None available FINDINGS: 4 mm linear high density focus left parietal occipital region axial 12 and coronal 29. No mass effect or calvarial fracture. The ventricles are within limits and midline. IMPRESSION: 4 mm linear high density focus left parietal occipital region axial 12 and coronal 29. Consideration would include small focus of hemorrhage or artifact.
--- NOTE | 2018-12-06 20:11 | Diagnostic Imaging Report ---
History: PAIN Exam: CT FACIAL Without Contrast Technique more: CTDI is 28.19 mGy and DLP is 518.72 mGy-cm. Technique more: One or more of the following dose reduction techniques were used: automated exposure control, adjustment of the mA and/or kV according to patient size, use of iterative reconstruction technique. Comparison: None available FINDINGS: No fracture. Globes appear intact without retrobulbar stranding. The paranasal sinuses and mastoids are clear. TMJs appear normally located. IMPRESSION: No fracture.
[2018-12-06] MEDS ORDERED: AMOXICILLIN500 MG ORAL (20:34)
[2018-12-06] MEDS ORDERED: TYLENOL EXTRA500 MG ORAL (20:34)
[2018-12-06] MEDS ORDERED: PEPCID AC20 M2 PO (20:38)
== END 2018-12-06 21:05 | disposition home or self-care (01) ==
LOC: EMR 18:26
DX: R51 Headache (principal); J03.90 Acute tonsillitis, unspecified; K21.9 Gastro-esophageal reflux disease without esophagitis; I10 Essential (primary) hypertension
CPT/HCPCS: 70450; 70486; 99284

== ENCOUNTER 2018-12-07 13:28 | Emergency (ER) | payer OTHER ==
[~2018-12-07] VITALS: Ht 152.4 cm; Wt 62.6 kg
[~2018-12-07 13:28] MED LIST changes: +AMOXICILLIN500 MG ORAL; +PEPCID AC20 M2 PO; +TYLENOL EXTRA500 MG ORAL
--- NOTE | 2018-12-07 13:45 | NUR ---
ED Nurse Note: PATIENT WALKED INTO ED FROM HOME FOR FOLLOW UP PROVIDER REQUESTED HER TO FOLLOW UP. REPORTS HEADACHE 10/13.
--- NOTE | 2018-12-07 13:54 | Emergency Room Report ---
History of Present Illness General Chief Complaint: General Complaint Source: Patient, Medical Record Present Illness HPI Patient is a 53-year-old female who presented after recent head CT for reevaluation. Patient had prior history of headache which she describes a throbbing sensation. She reports having improvement in her symptoms since medications. She denies any weakness or numbness. She reports having no neck pain or stiffness. CT from yesterday was read with questionable hemorrhage versus artifact. Patient denies any vomiting or pain. She reports having some continued nasal congestion. Allergies: Coded Allergies: No Known Allergies (Unverified , 10/29/15) Patient History Past Medical History: see triage record Last Menstrual Period: N/A Now: No : 2 Para: 2 Reviewed Nursing Documentation: PMH: Agreed; PSxH: Agreed Nursing Documentation-PMH Hx Cardiac Problems: No - high cholesterol Hx Hypertension: Yes Hx Pacemaker: No Hx Asthma: No Hx COPD: No Hx Diabetes: No Hx Cancer: No Hx Gastrointestinal Problems: No - Uterine fibroids Hx Dialysis: No Hx Neurological Problems: No Hx Cerebrovascular Accident: No Hx Seizures: No Review of Systems All Other Systems: negative except mentioned in HPI Physical Exam Vital Signs Date Time Temp Pulse Resp B/P (MAP) Pulse Ox O2 Delivery O2 Flow Rate FiO2 12/07/18 13:37 98.4 68 18 124/86 96 Room Air Sp02 EP Interpretation: reviewed, normal General Appearance: normal inspection, well appearing, no apparent distress, alert, GCS 15, non-toxic Head: atraumatic ENT: normal ENT inspection, hearing grossly normal, normal voice Neck: normal inspection, full range of motion, supple, no bony tend Respiratory: normal inspection, lungs clear, normal breath sounds, no respiratory distress, no retraction, no wheezing Cardiovascular #1: regular rate, rhythm, no edema Gastrointestinal: normal inspection, normal bowel sounds, non tender, soft, no guarding, no hernia Genitourinary: no CVA tenderness Musculoskeletal: normal inspection, back normal, normal range of motion Neurologic: normal inspection, alert, oriented x3, responsive, wind tunnel engineer III-XII nml as tested, speech normal Psychiatric: normal inspection, judgement/insight normal, mood/affect normal Skin: normal inspection, normal color, no rash Medical Decision Making Diagnostic Impression: Primary Impression: Headache ER Course Patient presented for headache. Differential diagnoses included but was not limited to skull fracture, subarachnoid hemorrhage, meningitis, aneurysm, mass lesion, intracranial hemorrhage. CT imaging of the head was ordered to evaluate due to recent questionably abnormal CT.CT imaging of head read by radiology showed no evidence of acute intracranial hemorrhage. Patient's previous reading appears to be artifactual. Patient was advised to follow-up if any worsening of condition. Last Vital Signs Date Time Temp Pulse Resp B/P (MAP) Pulse Ox O2 Delivery O2 Flow Rate FiO2 12/07/18 13:37 98.4 68 18 124/86 96 Room Air Status: improved Disposition: HOME, SELF-CARE Condition: Stable Andi Yanez MD Dec 07, 2018 13:54
--- NOTE | 2018-12-07 14:00 | NUR ---
ED Nurse Note: patient went down to ct
--- NOTE | 2018-12-07 14:15 | NUR ---
ED Nurse Note: patient came back from ct
--- NOTE | 2018-12-07 14:51 | Diagnostic Imaging Report ---
EXAM: CT Head Without Intravenous Contrast CLINICAL HISTORY: PAIN TECHNIQUE: Axial computed tomography images of the head/brain without intravenous contrast. CTDI is 70.38 mGy and DLP is 1295 mGy-cm. One or more of the following dose reduction techniques were used: automated exposure control, adjustment of the mA and/or kV according to patient size, use of iterative reconstruction technique. COMPARISON: CT head, 12/06/18 FINDINGS: Brain: Unremarkable. No hemorrhage. No significant white matter disease. No edema. Previously seen hyperdensity in the left parieto- occipital lobe is not seen. Ventricles: Unremarkable. No ventriculomegaly. Bones/joints: Unremarkable. No acute fracture. Soft tissues: Unremarkable. Sinuses: Unremarkable as visualized. No acute sinusitis. Mastoid air cells: Unremarkable as visualized. No mastoid effusion. IMPRESSION: Normal head/brain CT. Previously seen hyperdensity in the left parieto- occipital lobe is not seen.
--- NOTE | 2018-12-07 15:07 | NUR ---
ER DISCHARGE NOTE: Patient is cleared to be discharged per ERMD, pt is aox4, on room air, with stable vital signs. pt was given dc and prescription instructions, pt was able to verbalize understanding, pt id band removed without complications. pt is able to ambulate with steady gait. pt took all belongings.
[2018-12-07 15:37] VITALS: BP 124/86
== END 2018-12-07 15:38 | disposition home or self-care (01) ==
LOC: EMR 14:14
DX: R51 Headache (principal); I10 Essential (primary) hypertension; E78.00 Pure hypercholesterolemia, unspecified
CPT/HCPCS: 70450; 99284

== ENCOUNTER 2019-07-25 17:36 | Emergency (ER) | payer OTHER ==
[~2019-07-25] VITALS: Ht 162.6 cm; Wt 61.2 kg
[2019-07-25 17:42] VITALS: BP 160/84
[2019-07-25] MEDS ORDERED: LOVASTATIN10 MG ORAL (17:48)
[2019-07-25] MEDS ORDERED: ENALAPRIL MALE2.5 MG ORAL (17:48)
--- NOTE | 2019-07-25 18:04 | Emergency Room Report ---
History of Present Illness General Chief Complaint: Sore Throat Source: Medical Record Present Illness HPI 54-year-old female with no significant past medical history here complaining of worsening sore throat x1 week. Patient reports that she recently went to her primary care physician for similar symptoms and was prescribed Keflex for strep pharyngitis and was told that if symptoms do not improve referral to ear nose throat doctor will be requested. Patient reports that there has been no improvement in symptoms after taking the medication x3 days and still has a referral for ear nose throat doctor that is pending. Denies fever and chills, cough and congestion, shortness of breath, chest pain, palpitation, abdominal pain, nausea vomiting. Denies neck stiffness, photophobia, earache. Has not taken any medication for symptom relief. Patient sitting comfortably with stable vital signs. Allergies: Coded Allergies: No Known Allergies (Unverified , 10/29/15) Patient History Past Medical History: see triage record Past Surgical History: unable to obtain Pertinent Family History: none Last Menstrual Period: menopause Now: No Immunizations: UTD Reviewed Nursing Documentation: PMH: Agreed; PSxH: Agreed Nursing Documentation-PMH Past Medical History: No History, Except For Hx Cardiac Problems: No - high cholesterol Hx Hypertension: Yes Hx Pacemaker: No Hx Asthma: No Hx COPD: No Hx Diabetes: No Hx Cancer: No Hx Gastrointestinal Problems: No - Uterine fibroids Hx Dialysis: No History Of Psychiatric Problem: No Hx Neurological Problems: No Hx Cerebrovascular Accident: No Hx Seizures: No Review of Systems All Other Systems: negative except mentioned in HPI Physical Exam Vital Signs Date Time Temp Pulse Resp B/P (MAP) Pulse Ox O2 Delivery O2 Flow Rate FiO2 07/25/19 17:42 98.1 16 160/84 98 Room Air 07/25/19 17:42 71 Sp02 EP Interpretation: reviewed, normal General Appearance: no apparent distress, alert, GCS 15, non-toxic Head: normocephalic, atraumatic Eyes: bilateral eye normal inspection, bilateral eye PERRL ENT: hearing grossly normal, EOM grossly intact, no angioedema, tonsillar swelling, pharyngeal erythema, tonsillar exudate Neck: full range of motion, supple, thyroid normal, no meningismus, no bony tend, supple/symm/no masses Respiratory: chest non-tender, lungs clear, normal breath sounds, no rhonchi, no respiratory distress, no retraction, no wheezing, speaking full sentences Cardiovascular #1: regular rate, rhythm, no edema Gastrointestinal: normal inspection, non tender, soft, no mass Rectal: deferred Genitourinary: no CVA tenderness Musculoskeletal: back normal Neurologic: alert, motor strength/tone normal, oriented x3, sensory intact, responsive, speech normal Skin: no rash Lymphatic: adenopathy - left anterior cervical Medical Decision Making PA Attestation All my diagnosis and treatment plans were reviewed ad discussed with my supervising physician Dr. Bee Diagnostic Impression: Primary Impression: Tonsillitis with exudate Additional Impression: Cervical lymphadenitis ER Course 54-year-old female with no significant past medical history here complaining of worsening sore throat x1 week. Patient reports that she recently went to her primary care physician for similar symptoms and was prescribed Keflex for strep pharyngitis and was told that if symptoms do not improve referral to ear nose throat doctor will be requested. Patient reports that there has been no improvement in symptoms after taking the medication x3 days and still has a referral for ear nose throat doctor that is pending. Denies fever and chills, cough and congestion, shortness of breath, chest pain, palpitation, abdominal pain, nausea vomiting. Denies neck stiffness, photophobia, earache. Has not taken any medication for symptom relief. Patient sitting comfortably with stable vital signs. Ddx considered but are not limited to: strep pharyngitis, URI, tonsillitis, peritonsillar abscess, influneza Vital signs: are WNL, pt. is afebrile H&PE are most consistent with: Tonsillitis with exudate, anterior cervical lymphadenopathy ORDERS: Augmentin, prednisone ED INTERVENTIONS: None required at this time. DISCHARGE: At this time pt. is stable for d/c to home. Will provide printed patient care instructions, and any necessary prescriptions. Care plan and follow up instructions have been discussed with the patient prior to discharge. I advised the patient to stop taking Keflex as it is not specific to strep pharyngitis and start taking Augmentin instead. Prednisone to help with inflammation. Also do follow with your nose throat doctor regarding lymphadenopathy. Last Vital Signs Date Time Temp Pulse Resp B/P (MAP) Pulse Ox O2 Delivery O2 Flow Rate FiO2 07/25/19 17:42 98.1 71 16 160/84 (109) 98 Room Air Disposition: HOME, SELF-CARE Condition: Stable Scripts Prednisone* (PREDNISONE*) 10 Mg Tablet 10 MG ORAL BID for 5 Days, #10 TAB 0 Refills Prov: Liborio Fajardo 07/25/19 Amoxicillin/Potassium Clav 875-125* (AUGMENTIN 875-125 TABLET*) 1 Each Tablet 1 TAB ORAL TWICE A DAY for 10 Days, #20 TAB Prov: Liborio Fajardo 07/25/19 Patient Instructions: Tonsillitis Additional Instructions: Take medication as directed, follow-up with your primary care provider and keep your appointment with ear nose throat doctor for further assessment. The medication you are currently taking for throat infection is not very specific to strep pharyngitis. Start taking Augmentin. Liborio Fajardo Jul 25, 2019 18:04
[2019-07-25] MEDS ORDERED: AUGMENTIN 875-1 EAC1 ORAL (18:05)
[2019-07-25] MEDS ORDERED: PREDNISONE10 MG ORAL (18:05)
[2019-07-25 18:09] VITALS: BP 160/84
== END 2019-07-25 18:10 | disposition home or self-care (01) ==
LOC: EMR 18:04
DX: J03.90 Acute tonsillitis, unspecified (principal); I88.9 Nonspecific lymphadenitis, unspecified; I10 Essential (primary) hypertension; E78.00 Pure hypercholesterolemia, unspecified
CPT/HCPCS: 99282

== ENCOUNTER 2019-08-05 17:15 | Emergency (ER) | payer OTHER ==
[~2019-08-05] VITALS: Ht 152.4 cm; Wt 56.7 kg
[~2019-08-05 17:15] MED LIST changes: +AUGMENTIN 875-1 EAC1 ORAL; +ENALAPRIL MALE2.5 MG ORAL; +LOVASTATIN10 MG ORAL; +PREDNISONE10 MG ORAL
[2019-08-05 17:33] VITALS: BP 153/93
--- NOTE | 2019-08-05 17:33 | NUR ---
ED Nurse Note: Pt walked into ED c/o sorethroat since 07/17/19 and left ear pain x 2 days. Pt recently finished antibiotics for tonsilitis. Denies any ear discharges nor difficulty hearing. Afebrile. No SOB. VSS.
--- NOTE | 2019-08-05 17:49 | NUR ---
ED Nurse Note: ERPA at bedside.
--- NOTE | 2019-08-05 18:08 | Emergency Room Report ---
History of Present Illness General Chief Complaint: Sore Throat Source: Patient Present Illness HPI 54 YO Female presents to the ED c/o 9/[address] x 3 weeks, not improved after Keflex and Augmentin courses after being evaluated by her PCP and in the ED. She also c/o new onset 6/10 in severity left cheek/jaw swelling and pain in addition to inner ear pressure.She endorses that she recently saw a dentist whom said it is not a tooth issue. Pt. has been waiting for ENT referral. She reports fatigue with chills since yesterday. Pt. not sure if she is utd with all vaccinations as she was born in [place] and moved to the [place] at the age of 20. Pt. denies cough. She reports her ST is exacerbated and causes a burning sensation when she eats or drinks anything too acidic. Pt. denies hx of GERD. She denies changes in her voice. She denies taking any medications today for her symptoms. Denies external ear TTP, denies ear d/c. Pt. reports 2/10 in severity RUBALCAVA without neck pain/stiffness or photophobia. She reports progressive onset of all of her symptoms. She denies hs of immune compromise. She denies inability to tolerate her own saliva. She denies recent dental procedures. She denies changes in size of the ST swelling of her left cheek/jaw. Allergies: Coded Allergies: No Known Allergies (Unverified , 10/29/15) Patient History Past Medical History: see triage record Past Surgical History: none Pertinent Family History: none Last Menstrual Period: 20 years ago Now: No Reviewed Nursing Documentation: PMH: Agreed; PSxH: Agreed Nursing Documentation-PMH Past Medical History: No History, Except For Hx Cardiac Problems: No - high cholesterol Hx Hypertension: Yes Hx Pacemaker: No Hx Asthma: No Hx COPD: No Hx Diabetes: No Hx Cancer: No Hx Gastrointestinal Problems: No - Uterine fibroids Hx Dialysis: No Hx Neurological Problems: No Hx Cerebrovascular Accident: No Hx Seizures: No Review of Systems All Other Systems: negative except mentioned in HPI Physical Exam Vital Signs Date Time Temp Pulse Resp B/P (MAP) Pulse Ox O2 Delivery O2 Flow Rate FiO2 08/05/19 17:24 98.8 77 16 153/93 (113) 98 Room Air Sp02 EP Interpretation: reviewed, normal General Appearance: no apparent distress, alert, GCS 15, non-toxic Head: normocephalic, atraumatic Eyes: bilateral eye normal inspection, bilateral eye PERRL ENT: hearing grossly normal, normal pharynx, no angioedema, normal voice, TMs + canals normal, uvula midline, moist mucus membranes, pharyngeal erythema - no exudates. , other - no sublingual ttp, no sublingual swelling, normal voice. Pt. non-toxic in appearance, NAD. no evidence of PERSONAL DRIVER. no palpable sialoliths on PE, some left preauricular LAD and subparotid LAD. Neck: full range of motion, tender lateral - left anterior TTP- mild Respiratory: chest non-tender, lungs clear, normal breath sounds, no respiratory distress, no accessory muscle use, no wheezing, speaking full sentences Cardiovascular #1: regular rate, rhythm Musculoskeletal: normal range of motion, gait/station normal, non-tender Neurologic: alert, motor strength/tone normal, oriented x3, sensory intact, cerebellar normal, responsive, speech normal, normal gait Psychiatric: judgement/insight normal Skin: no rash Lymphatic: other - left preauricular and bilateral subparotid and anterior cervical LAD. Medical Decision Making PA Attestation Dr. Guillermo Is my supervising Physician whom patient management has been discussed with. Diagnostic Impression: Primary Impression: Parotitis, acute Additional Impression: Sore throat, chronic ER Course 54 YO Female presents to the ED c/o 9/[address] x 3 weeks, not improved after Keflex and Augmentin courses after being evaluated by her PCP and in the ED. She also c/o new onset 6/10 in severity left cheek/jaw swelling and pain in addition to inner ear pressure.She endorses that she recently saw a dentist whom said it is not a tooth issue. Pt. has been waiting for ENT referral. She reports fatigue with chills since yesterday. Pt. not sure if she is utd with all vaccinations as she was born in [place] and [place] the [place] at the age of 20. Pt. denies cough. She reports her ST is exacerbated and causes a burning sensation when she eats or drinks anything too acidic. Pt. denies hx of GERD. She denies changes in her voice. She denies taking any medications today for her symptoms. Denies external ear TTP, denies ear d/c. Pt. reports 2/10 in severity RUBALCAVA without neck pain/stiffness or photophobia. She reports progressive onset of all of her symptoms. She denies hs of immune compromise. She denies inability to tolerate her own saliva. She denies recent dental procedures. She denies changes in size of the ST swelling of her left cheek/jaw. Ddx considered but are not limited to: pharyngitis, strep, PERSONAL DRIVER, ludwigs angina, URI, parotitis, lymphadenopathy, dental infection, dental abscess, soft tissue abscess just to name a few. Vital signs: are WNL, pt. is afebrile H&PE are most consistent with: left sided parotitis. - no sublingual ttp, no sublingual swelling, normal voice. Pt. non-toxic in appearance, NAD. no evidence of PERSONAL DRIVER. no palpable sialoliths on PE, some left preauricular LAD and bilateral subparotid and anterior cervical LAD. ORDERS: None required at this time as the diagnosis is clinical ED INTERVENTIONS: -Toradol IM -I do not identify an emergent condition at this time. With current presentation , pt. is stable for close outpatient follow up and conservative treatment. D/ w pt. to return promptly to ED with worsening or new symptoms.- Pt. verbalizes' understanding and agreement with proposed treatment plan. DISCHARGE: At this time pt. is stable for d/c to home. Will provide printed patient care instructions, and any necessary prescriptions. Care plan and follow up instructions have been discussed with the patient prior to discharge. Last Vital Signs Date Time Temp Pulse Resp B/P (MAP) Pulse Ox O2 Delivery O2 Flow Rate FiO2 08/05/19 17:33 98.8 77 16 153/93 98 Room Air Disposition: HOME, SELF-CARE Condition: Stable Scripts Acetaminophen* (TYLENOL EXTRA STRENGTH*) 500 Mg Tablet 500 MG ORAL Q6H, #30 TAB 0 Refills Prov: Ema Diaz 08/05/19 Lidocaine HCl 2% Viscous (Lidocaine HCl 2% Viscous) 100 Ml Solution 10 ML ORAL QID, #200 ML Prov: Ema Diaz 08/05/19 Ranitidine Hcl* (ZANTAC*) 150 Mg Tablet 150 MG ORAL TWICE A DAY for 10 Days, #20 TAB Prov: Ema Diaz 08/05/19 Ibuprofen* (MOTRIN*) 600 Mg Tablet 600 MG ORAL THREE TIMES A DAY, #30 TAB 0 Refills Prov: Ema Diaz 08/05/19 Patient Instructions: Parotitis, Sore Throat Additional Instructions: Take medications as directed. Follow up with a Primary Care Provider in 3-5 days, even if your symptoms have resolved. For renewal of your ENT specialist referral --Please review list of primary care clinics, if you do not already have a primary care provider Return sooner to ED if new symptoms occur, or current symptoms become worse. - Please note that this Emergency Department Report was dictated using [employer] instrument maker technology software, occasionally this can lead to erroneous entry secondary to interpretation by the dictation equipment. Ema Diaz Aug 05, 2019 18:08
[2019-08-05] MEDS ORDERED: TYLENOL EXTRA500 MG ORAL (18:12)
[2019-08-05] MEDS ORDERED: IBUPROFEN600 MG ORAL (18:12)
[2019-08-05] MEDS ORDERED: LIDOCAINE VISC100 ML ORAL (18:12)
[2019-08-05] MEDS ORDERED: ZANTAC150 MG ORAL (18:12)
[2019-08-05] MEDS ORDERED: Ketorolac 30mg Inj IM ONE (18:15)
[2019-08-05 18:20] VITALS: BP 153/93
--- NOTE | 2019-08-05 18:20 | NUR ---
ED Nurse Note: Pt cleared by ERMD for discharge. DC instructions/prescription was given and explained to pt and verbalized understanding of teachings. All medical deviecs such as ID band removed. Pt is AAO x4, ambulatory and left with all personal belongings.
== END 2019-08-05 18:20 | disposition home or self-care (01) ==
LOC: EMR 18:20
DX: K11.21 Acute sialoadenitis (principal); R07.0 Pain in throat; E78.00 Pure hypercholesterolemia, unspecified; I10 Essential (primary) hypertension; R68.84 Jaw pain
CPT/HCPCS: 96372; 99283; J1885